=== PATIENT | male | born 1960 | race African-American/Black ===

== ENCOUNTER 2017-04-27 16:28 | Inpatient (IN) | payer OTHER ==
[~2017-04-27] VITALS: Ht 190.5 cm; Wt 89.8 kg
[2017-04-27 16:38] VITALS: BP 136/100
[2017-04-27] MEDS ORDERED: ATOR40TA PO (16:54)
[2017-04-27] MEDS ORDERED: HYDR-1098 PO (16:54)
[2017-04-27] MEDS ORDERED: CEL250 PO (16:54)
[2017-04-27] MEDS ORDERED: CARV12.5 PO (16:54)
[2017-04-27] MEDS ORDERED: PRED10TA5 PO (16:54)
[2017-04-27] MEDS ORDERED: ASPI81CT89 PO (16:54)
[2017-04-27] MEDS ORDERED: ISOS10TA9 PO (16:54)
[2017-04-27] MEDS ORDERED: LEVE750T3 PO (17:08)
[2017-04-27] MEDS ORDERED: INSU100S45 SUBQ (17:08)
[2017-04-27] MEDS ORDERED: LANTUS SUBQ (17:08)
[2017-04-27] MEDS ORDERED: LACO100T PO (17:08)
[2017-04-27] MEDS ORDERED: MAGN400S60 PO (17:08)
[2017-04-27] MEDS ORDERED: BISA-213 RC (17:08)
[2017-04-27] MEDS ORDERED: [UNRECOGNIZED DRUG - CODE] SUBQ (17:08)
[2017-04-27] MEDS ORDERED: OMEP20TC10 PO (17:08)
[2017-04-27] MEDS ORDERED: ATI.5 PO (17:08)
[2017-04-27] MEDS ORDERED: MAGN500T24 PO (17:08)
[2017-04-27] MEDS ORDERED: ACET-2619 PO (17:08)
[2017-04-27] MEDS ORDERED: LOSA100T25 PO (17:08)
[2017-04-27] MEDS ORDERED: PROG1 PO (17:08)
[2017-04-27 18:59] LABS: APPEARANCE,URINE SL CLOUDY (CLEAR); BILIRUBIN,URINE NEGATIVE (NEGATIVE); BLOOD, URINE 2+ (NEGATIVE); COLOR,URINE YELLOW (YELLOW); LEUKOCYTE ESTERASE ,URINE 3+ (NEGATIVE); NITRITE, URINE POSITIVE (NEGATIVE); PROTEIN,URINE 2+ (NEGATIVE); UGLUCOSE NEGATIVE (NEGATIVE); UROBILINOGEN,URINE 0.2 EU/dL (0.2 - 1)
[2017-04-27 19:28] LABS: BACTERIA,URINE 4+ /HPF (None Seen); RBC,URINE 3-10 (FEW) /HPF (0-5); SQUAMOUS EPITHELIAL CELL,UR None Seen /LPF (0-3 (FEW)); WBC,URINE TOO MANY TO COUNT /HPF (0-5)
[2017-04-27 19:44] LABS: BASOPHILS # (AUTO) 0.1 K/uL (0.00-0.22); EOSINOPHILS # (AUTO) 0.1 K/uL (0-0.4); EOSINOPHILS % (AUTO) 1.4 % (0.0-4.0); HEMATOCRIT 38.4 % (36-52); HEMOGLOBIN 12.4 g/dL (12.0-18.0); LYMPHOCYTES # (AUTO) 0.4 K/uL (2.0-11.5); LYMPHOCYTES % (AUTO) 4.1 % (20.5-51.1); MEAN CORPUSCULAR HEMOGLOBIN 27 pg (27-31); MEAN CORPUSCULAR HGB CONC 32 g/dL (33-37); MEAN CORPUSCULAR VOLUME 84 fL (80-94); MONOCYTES # (AUTO) 0.7 K/uL (0.8-1.0); MONOCYTES % (AUTO) 7.6 % (1.7-9.3); NEUTROPHILS # (AUTO) 7.9 K/uL (1.8-7.7); NEUTROPHILS % (AUTO) 85.9 % (42.2-75.2); PLATELET COUNT (AUTO) 259 K/uL (140-450); RED BLOOD CELL COUNT(AUTO) 4.59 MIL/uL (4.20-6.10); RED CELL DISTRIBUTION WIDTH 17.6 % (11.6-13.7); WHITE BLOOD COUNT (AUTO) 9.2 K/uL (4.8-10.8)
[2017-04-27 20:01] LABS: ANION GAP 12.3 (8-16); CALCIUM 8.4 mg/dL (8.5-10.1); CARBON DIOXIDE 28.9 mmol/L (21-32); CREATININE 1.3 mg/dL (0.7-1.3); POTASSIUM 3.2 mmol/L (3.5-5.1)
[2017-04-27 20:02] LABS: INR 1.3 (0.8-1.2); PARTIAL THROMBOPLASTIN TIME 30.6 secs (22-35.6); PROTHROMBIN TIME 13.7 secs (10.8-13.4)
[2017-04-27 20:07] LABS: ALBUMIN 2.5 g/dL (3.4-5.0); TOTAL BILIRUBIN 0.7 mg/dL (0.0-1.0)
[2017-04-27] MEDS ORDERED: POTASSIUM CHLORIDE 10 MEQ TABER PO ONE (20:40)
[2017-04-27] MEDS ORDERED: LEVOFLOXACIN 500 MG/D5W PREMIX 100 ML IV ONE (20:40)
[2017-04-27] MEDS ORDERED: DOCUSATE SODIUM 100 MG GELCAP PO PRN (21:05)
[2017-04-27] MEDS ORDERED: HYDROcodone/APAP 7.5/325 MG 1 TAB PO PRN (21:05)
[2017-04-27] MEDS ORDERED: ONDANSETRON 4 MG/2 ML VIAL IM/IVP PRN (21:05)
[2017-04-27] MEDS ORDERED: ACETAMINOPHEN 325 MG TAB PO PRN (21:05)
[2017-04-27] MEDS ORDERED: MORPHINE SULFATE 2 MG/ML SYR IVP PRN (21:05)
[2017-04-27] MEDS ORDERED: LEVOFLOXACIN 750 MG/D5W PREMIX 150 ML IV ONE (21:15)
[2017-04-27] MEDS ORDERED: LACTOBACILLUS RHAMNOSUS GG 1 EACH CAP PO SCH (21:15)
[2017-04-27 21:48] LABS: CHOL/HDL RATIO 2.3 (1-4.5); FREE T4 (FREE THYROXINE) 1.32 ng/dL (0.76-1.46); MAGNESIUM 1.2 mg/dL (1.8-2.4); PHOSPHORUS 3.3 mg/dL (2.5-4.9); THYROID STIMULATING HORMONE 1.7 uIU/mL (0.34-3.74)
[2017-04-27 22:00] VITALS: BP 145/100
[2017-04-27] MEDS: NACL 0.9% 1,000 ML IV SCH (22:14)
[2017-04-27 22:36] LABS: LACTIC ACID 1.1 mmol/L (0.4-2.0)
[2017-04-27] MEDS ORDERED: DEXTROSE 50% 50 ML SYR IVP PRN (23:50)
[2017-04-28] VITALS: BP 146/90
[2017-04-28] MEDS ORDERED: NON-FORMULARY ITEM (Insulin Aspart* (Novolog*) 3 UNITS) SUBQ PRN (01:35)
[2017-04-28] MEDS ORDERED: BISACODYL 10 MG SUPP RC PRN (01:35)
[2017-04-28] MEDS ORDERED: LORazepam 0.5 MG TAB PO PRN (01:35)
[2017-04-28] MEDS ORDERED: MAGNESIUM HYDROXIDE 2400 MG/30 ML UDC PO PRN (01:35)
[2017-04-28] MEDS ORDERED: ACETAMINOPHEN 325 MG TAB PO PRN (01:35)
[2017-04-28] MEDS ORDERED: MAG SULF 2000 MG/WATER PREMIX 50 ML IV ONE (01:40)
[2017-04-28] MEDS ORDERED: POTASSIUM CHLORIDE 40 MEQ, LIDOCAINE 1% 25 MG in NACL 0.9% 250 ML IV ONE (01:40)
[2017-04-28] MEDS ORDERED: KCL 20 MEQ/WATER INJ PREMIX 200 ML IV ONE (02:45)
[2017-04-28 04:00] VITALS: BP 198/90
[2017-04-28] MEDS: INSULIN DETEMIR 100 UNITS/ML 10 ML VIAL SUBQ SCH (06:43)
[2017-04-28] MEDS: BLOOD GLUCOSE MONITORING 1 DEV DEV FS SCH ×4 (06:44→20:51)
[2017-04-28 08:00] VITALS: BP 137/97
[2017-04-28] MEDS ORDERED: ENOXAPARIN 120 MG/0.8 ML SYR SUBQ SCH ×2 (09:00→21:00)
[2017-04-28] MEDS ORDERED: MAGNESIUM OXIDE 400 MG TAB PO SCH (09:00)
[2017-04-28] MEDS ORDERED: NON-FORMULARY ITEM (Lacosamide (Vimpat) 100 MG) PO SCH (09:00)
[2017-04-28] MEDS: MYCOPHENOLATE 250 MG CAP PO SCH ×2 (10:07→20:59)
[2017-04-28] MEDS: ATORVASTATIN 20 MG TAB PO SCH (10:07)
[2017-04-28] MEDS: ISOSORBIDE DINITRATE 10 MG TAB PO SCH ×3 (10:07→16:19)
[2017-04-28] MEDS: PANTOPRAZOLE 40 MG TABEC PO SCH (10:07)
[2017-04-28] MEDS: levETIRAcetam 500 MG TAB PO SCH ×2 (10:08→21:00)
[2017-04-28] MEDS: ASPIRIN 81 MG TAB.CHEW PO SCH (10:08)
[2017-04-28] MEDS: CARVEDILOL 12.5 MG TAB PO SCH ×2 (10:08→20:59)
[2017-04-28] MEDS: LOSARTAN 50 MG TAB PO SCH (10:09)
[2017-04-28] MEDS: hydrALAZINE 25 MG TAB PO SCH ×4 (10:09→21:01)
[2017-04-28] MEDS: TACROLIMUS 1 MG CAP PO SCH ×2 (10:09→20:59)
[2017-04-28] MEDS: LACTOBACILLUS RHAMNOSUS GG 1 EACH CAP PO SCH (10:09)
[2017-04-28] MEDS: predniSONE 10 MG TAB PO SCH (10:09)
[2017-04-28 12:00] VITALS: BP 118/70
[2017-04-28] MEDS: INSULIN LISPRO SLIDING SCALE 100 UNITS/ML VIAL SUBQ PRN ×3 (13:29→21:02)
[2017-04-28] MEDS: ALBUTEROL SULFATE/IPRATROPIU 3 ML SOL IH SCH ×3 (15:00→22:57)
[2017-04-28 16:00] VITALS: BP 123/75
[2017-04-28] MEDS ORDERED: POTASSIUM CHLORIDE 10 MEQ TABER PO SCH (16:00)
[2017-04-28] MEDS ORDERED: HEPARIN PER PHARMACY MC PRN (18:05)
[2017-04-28] MEDS ORDERED: hePARIN / DEXT 5% PREMIX 250 ML IV SCH (18:05)
[2017-04-28 20:00] VITALS: BP 122/95
[2017-04-28] MEDS: MAGNESIUM OXIDE 400 MG TAB PO SCH (21:00)
[2017-04-28] MEDS: NACL 0.9% 1,000 ML IV SCH (21:06)
[2017-04-28] MEDS: LEVOFLOXACIN 750 MG/D5W PREMIX 150 ML IV SCH (23:36)
[2017-04-29] VITALS: BP 126/64
[2017-04-29] MEDS: ALBUTEROL SULFATE/IPRATROPIU 3 ML SOL IH SCH ×3 (03:00→11:00)
[2017-04-29 04:00] VITALS: BP 121/93
[2017-04-29] MEDS: BLOOD GLUCOSE MONITORING 1 DEV DEV FS SCH ×4 (06:31→21:31)
[2017-04-29] MEDS: INSULIN DETEMIR 100 UNITS/ML 10 ML VIAL SUBQ SCH (06:33)
[2017-04-29] MEDS: INSULIN LISPRO SLIDING SCALE 100 UNITS/ML VIAL SUBQ PRN ×3 (06:35→21:33)
[2017-04-29 07:50] VITALS: BP 134/90
[2017-04-29] MEDS: ATORVASTATIN 20 MG TAB PO SCH (08:56)
[2017-04-29] MEDS: MYCOPHENOLATE 250 MG CAP PO SCH ×2 (08:56→21:41)
[2017-04-29] MEDS: TACROLIMUS 1 MG CAP PO SCH ×2 (08:57→21:00)
[2017-04-29] MEDS: predniSONE 10 MG TAB PO SCH (08:57)
[2017-04-29] MEDS: CARVEDILOL 12.5 MG TAB PO SCH ×2 (08:57→21:40)
[2017-04-29] MEDS: ISOSORBIDE DINITRATE 10 MG TAB PO SCH ×3 (08:57→16:59)
[2017-04-29] MEDS: PANTOPRAZOLE 40 MG TABEC PO SCH (08:57)
[2017-04-29] MEDS: levETIRAcetam 500 MG TAB PO SCH ×2 (08:58→21:41)
[2017-04-29] MEDS: MAGNESIUM OXIDE 400 MG TAB PO SCH ×2 (08:58→21:42)
[2017-04-29] MEDS: LOSARTAN 50 MG TAB PO SCH (08:58)
[2017-04-29] MEDS: hydrALAZINE 25 MG TAB PO SCH ×4 (08:58→21:41)
[2017-04-29] MEDS: ASPIRIN 81 MG TAB.CHEW PO SCH (08:59)
[2017-04-29 12:00] VITALS: BP 112/80
[2017-04-29 12:22] LABS: BASOPHILS # (AUTO) 0.1 K/uL (0.00-0.22); BASOPHILS % (AUTO) 1.3 % (0.0-2.0); EOSINOPHILS # (AUTO) 0.1 K/uL (0-0.4); EOSINOPHILS % (AUTO) 1.4 % (0.0-4.0); HEMATOCRIT 39.4 % (36-52); HEMOGLOBIN 12.7 g/dL (12.0-18.0); LYMPHOCYTES # (AUTO) 0.3 K/uL (2.0-11.5); LYMPHOCYTES % (AUTO) 2.9 % (20.5-51.1); MEAN CORPUSCULAR HEMOGLOBIN 27 pg (27-31); MEAN CORPUSCULAR HGB CONC 32 g/dL (33-37); MEAN CORPUSCULAR VOLUME 84 fL (80-94); MONOCYTES # (AUTO) 0.6 K/uL (0.8-1.0); MONOCYTES % (AUTO) 5.9 % (1.7-9.3); NEUTROPHILS # (AUTO) 8.5 K/uL (1.8-7.7); NEUTROPHILS % (AUTO) 88.5 % (42.2-75.2); PLATELET COUNT (AUTO) 263 K/uL (140-450); RED BLOOD CELL COUNT(AUTO) 4.69 MIL/uL (4.20-6.10); RED CELL DISTRIBUTION WIDTH 17.7 % (11.6-13.7)
[2017-04-29 12:42] LABS: ANION GAP 11.4 (8-16); CALCIUM 8.7 mg/dL (8.5-10.1); CARBON DIOXIDE 28.6 mmol/L (21-32); CREATININE 1.5 mg/dL (0.7-1.3)
[2017-04-29 12:47] LABS: WHITE BLOOD COUNT (AUTO) 9.6 K/uL (4.8-10.8)
[2017-04-29] MEDS: LACTOBACILLUS RHAMNOSUS GG 1 EACH CAP PO SCH (12:54)
[2017-04-29] MEDS: LACOSAMIDE 100 MG PO SCH ×2 (12:55→21:00)
[2017-04-29] MEDS: NACL 0.9% 1,000 ML IV SCH (15:15)
[2017-04-29] MEDS ORDERED: ALBUTEROL SULFATE/IPRATROPIU 3 ML SOL IH PRN (15:20)
[2017-04-29 16:00] VITALS: BP 118/72
[2017-04-29] MEDS ORDERED: HEPARIN PER PHARMACY MC PRN (18:10)
[2017-04-29 21:06] LABS: INR 1.2 (0.8-1.2); PROTHROMBIN TIME 12.6 secs (10.8-13.4)
[2017-04-29] MEDS ORDERED: hePARIN / DEXT 5% PREMIX 250 ML IV SCH (22:00)
[2017-04-29] MEDS ORDERED: WARFARIN 5 MG TAB PO SCH (22:15)
[2017-04-29] MEDS: LEVOFLOXACIN 750 MG/D5W PREMIX 150 ML IV SCH (23:00)
[2017-04-29] MEDS ORDERED: LEVOFLOXACIN 750 MG TAB PO SCH (23:45)
[2017-04-30] VITALS: BP 123/74
[2017-04-30] MEDS: LACOSAMIDE 100 MG PO SCH ×3 (00:12→20:53)
[2017-04-30 05:55] LABS: BASOPHILS % (AUTO) 0.5 % (0.0-2.0); EOSINOPHILS # (AUTO) 0.2 K/uL (0-0.4); EOSINOPHILS % (AUTO) 1.7 % (0.0-4.0); HEMATOCRIT 37.6 % (36-52); HEMOGLOBIN 12.3 g/dL (12.0-18.0); LYMPHOCYTES # (AUTO) 0.8 K/uL (2.0-11.5); LYMPHOCYTES % (AUTO) 8.3 % (20.5-51.1); MEAN CORPUSCULAR HEMOGLOBIN 27 pg (27-31); MEAN CORPUSCULAR HGB CONC 33 g/dL (33-37); MEAN CORPUSCULAR VOLUME 84 fL (80-94); MONOCYTES # (AUTO) 1.3 K/uL (0.8-1.0); NEUTROPHILS # (AUTO) 7.2 K/uL (1.8-7.7); NEUTROPHILS % (AUTO) 75.5 % (42.2-75.2); PLATELET COUNT (AUTO) 248 K/uL (140-450); RED BLOOD CELL COUNT(AUTO) 4.48 MIL/uL (4.20-6.10); RED CELL DISTRIBUTION WIDTH 17.7 % (11.6-13.7)
[2017-04-30 06:34] LABS: CALCIUM 9.2 mg/dL (8.5-10.1); CARBON DIOXIDE 28.2 mmol/L (21-32); CREATININE 1.4 mg/dL (0.7-1.3); MAGNESIUM 1.5 mg/dL (1.8-2.4); PHOSPHORUS 3.3 mg/dL (2.5-4.9); POTASSIUM 3.2 mmol/L (3.5-5.1)
[2017-04-30 06:39] LABS: INR 1.2 (0.8-1.2); PROTHROMBIN TIME 12.4 secs (10.8-13.4)
[2017-04-30] MEDS: INSULIN DETEMIR 100 UNITS/ML 10 ML VIAL SUBQ SCH (06:44)
[2017-04-30] MEDS: BLOOD GLUCOSE MONITORING 1 DEV DEV FS SCH ×4 (06:46→20:55)
[2017-04-30 07:03] LABS: WHITE BLOOD COUNT (AUTO) 9.5 K/uL (4.8-10.8)
[2017-04-30] MEDS: NACL 0.9% 1,000 ML IV SCH (07:55)
[2017-04-30 08:00] VITALS: BP 137/105
[2017-04-30] MEDS: CARVEDILOL 12.5 MG TAB PO SCH ×2 (08:40→20:52)
[2017-04-30] MEDS: ISOSORBIDE DINITRATE 10 MG TAB PO SCH ×3 (08:40→16:41)
[2017-04-30] MEDS: LOSARTAN 50 MG TAB PO SCH (08:40)
[2017-04-30] MEDS: hydrALAZINE 25 MG TAB PO SCH ×4 (08:41→20:51)
[2017-04-30] MEDS: levETIRAcetam 500 MG TAB PO SCH ×2 (08:41→20:52)
[2017-04-30] MEDS: LACTOBACILLUS RHAMNOSUS GG 1 EACH CAP PO SCH (08:45)
[2017-04-30] MEDS: predniSONE 10 MG TAB PO SCH (08:45)
[2017-04-30] MEDS: ATORVASTATIN 20 MG TAB PO SCH (08:45)
[2017-04-30] MEDS: PANTOPRAZOLE 40 MG TABEC PO SCH (08:46)
[2017-04-30] MEDS: MYCOPHENOLATE 250 MG CAP PO SCH ×2 (08:46→20:51)
[2017-04-30] MEDS: ASPIRIN 81 MG TAB.CHEW PO SCH (08:46)
[2017-04-30] MEDS: TACROLIMUS 1 MG CAP PO SCH ×2 (08:46→20:53)
[2017-04-30] MEDS: MAGNESIUM OXIDE 400 MG TAB PO SCH ×2 (08:50→20:53)
[2017-04-30] MEDS ORDERED: WARFARIN 5 MG TAB PO SCH (09:00)
[2017-04-30 10:00] VITALS: BP 126/84
[2017-04-30] MEDS ORDERED: POTASSIUM CHLORIDE 10 MEQ TABER PO ONE (11:00)
[2017-04-30] MEDS ORDERED: QUEtiapine FUMARATE 25 MG TAB PO SCH (11:00)
[2017-04-30] MEDS ORDERED: MAG SULF 2000 MG/WATER PREMIX 50 ML IV ONE (11:15)
[2017-04-30] MEDS: INSULIN LISPRO SLIDING SCALE 100 UNITS/ML VIAL SUBQ PRN (11:38)
[2017-04-30 12:00] VITALS: BP 127/85
[2017-04-30] MEDS ORDERED: POTASSIUM CHLORIDE 10 MEQ TABER PO SCH ×3 (12:00→16:00)
[2017-04-30 12:10] LABS: HEPATITIS A ANTIBODY IGM Negative (Negative); HEPATITIS B CORE AB TOTAL Negative (Negative); HEPATITIS B CORE, IGM Negative (Negative); HEPATITIS B SURFACE AB Reactive (.); HEPATITIS B SURFACE ANTIGEN Negative (Negative); HEPATITIS C VIRUS ANTIBODY 0.1 s/co ratio (0.0-0.9)
[2017-04-30 16:00] VITALS: BP 119/62
[2017-04-30] MEDS ORDERED: MAGNESIUM OXIDE 400 MG TAB PO SCH ×2 (18:30→21:00)
[2017-04-30] MEDS ORDERED: LEVOFLOXACIN 750 MG TAB PO SCH (21:00)
[2017-05-01] MEDS: NACL 0.9% 1,000 ML IV SCH ×2 (00:35→17:15)
[2017-05-01 06:09] LABS: BASOPHILS # (AUTO) 0.1 K/uL (0.00-0.22); BASOPHILS % (AUTO) 1.1 % (0.0-2.0); EOSINOPHILS # (AUTO) 0.2 K/uL (0-0.4); EOSINOPHILS % (AUTO) 2.3 % (0.0-4.0); HEMATOCRIT 37.1 % (36-52); HEMOGLOBIN 11.8 g/dL (12.0-18.0); LYMPHOCYTES # (AUTO) 0.7 K/uL (2.0-11.5); LYMPHOCYTES % (AUTO) 9.3 % (20.5-51.1); MEAN CORPUSCULAR HEMOGLOBIN 27 pg (27-31); MEAN CORPUSCULAR HGB CONC 32 g/dL (33-37); MEAN CORPUSCULAR VOLUME 84 fL (80-94); MONOCYTES # (AUTO) 0.8 K/uL (0.8-1.0); MONOCYTES % (AUTO) 10.9 % (1.7-9.3); NEUTROPHILS # (AUTO) 5.4 K/uL (1.8-7.7); NEUTROPHILS % (AUTO) 76.4 % (42.2-75.2); PLATELET COUNT (AUTO) 258 K/uL (140-450); RED BLOOD CELL COUNT(AUTO) 4.43 MIL/uL (4.20-6.10); RED CELL DISTRIBUTION WIDTH 17.6 % (11.6-13.7)
[2017-05-01 06:20] LABS: ANION GAP 11.4 (8-16); CALCIUM 8.8 mg/dL (8.5-10.1); CARBON DIOXIDE 26.2 mmol/L (21-32); CREATININE 1.3 mg/dL (0.7-1.3); POTASSIUM 3.6 mmol/L (3.5-5.1)
[2017-05-01] MEDS: INSULIN DETEMIR 100 UNITS/ML 10 ML VIAL SUBQ SCH (06:30)
[2017-05-01 06:33] LABS: MAGNESIUM 1.5 mg/dL (1.8-2.4); PHOSPHORUS 3.5 mg/dL (2.5-4.9)
[2017-05-01] MEDS: BLOOD GLUCOSE MONITORING 1 DEV DEV FS SCH ×4 (06:34→20:25)
[2017-05-01 07:04] LABS: WHITE BLOOD COUNT (AUTO) 7.2 K/uL (4.8-10.8)
[2017-05-01 08:00] VITALS: BP 118/81
[2017-05-01] MEDS: levETIRAcetam 500 MG TAB PO SCH ×2 (08:33→20:12)
[2017-05-01] MEDS: MAGNESIUM OXIDE 400 MG TAB PO SCH (08:33)
[2017-05-01] MEDS: MYCOPHENOLATE 250 MG CAP PO SCH ×2 (08:34→20:10)
[2017-05-01] MEDS: ATORVASTATIN 20 MG TAB PO SCH (08:34)
[2017-05-01] MEDS: PANTOPRAZOLE 40 MG TABEC PO SCH (08:34)
[2017-05-01] MEDS: CARVEDILOL 12.5 MG TAB PO SCH ×2 (08:35→20:12)
[2017-05-01] MEDS: predniSONE 10 MG TAB PO SCH (08:35)
[2017-05-01] MEDS: TACROLIMUS 1 MG CAP PO SCH ×2 (08:35→20:12)
[2017-05-01] MEDS: LACTOBACILLUS RHAMNOSUS GG 1 EACH CAP PO SCH (08:35)
[2017-05-01] MEDS: ISOSORBIDE DINITRATE 10 MG TAB PO SCH ×3 (08:36→16:49)
[2017-05-01] MEDS: LOSARTAN 50 MG TAB PO SCH (08:36)
[2017-05-01] MEDS: ASPIRIN 81 MG TAB.CHEW PO SCH (08:36)
[2017-05-01] MEDS: LACOSAMIDE 100 MG PO SCH ×2 (08:37→21:00)
[2017-05-01] MEDS: hydrALAZINE 25 MG TAB PO SCH ×4 (08:38→20:10)
[2017-05-01] MEDS ORDERED: QUEtiapine FUMARATE 25 MG TAB PO SCH (09:00)
[2017-05-01] MEDS: INSULIN LISPRO SLIDING SCALE 100 UNITS/ML VIAL SUBQ PRN ×3 (11:51→20:21)
[2017-05-01 12:00] VITALS: BP 138/94
[2017-05-01] MEDS ORDERED: WARF10TA PO ×3 (12:18→12:26)
[2017-05-01] MEDS ORDERED: [UNRECOGNIZED DRUG - CODE] SUBQ (12:18)
[2017-05-01] MEDS ORDERED: QUET50TA PO (12:50)
[2017-05-01 13:25] LABS: HIV 1/0/2 ABS, QUAL Non Reactive (Non Reactive)
[2017-05-01] MEDS ORDERED: CIPROFLOXACIN 250 MG TAB PO SCH (15:00)
[2017-05-01 16:00] VITALS: BP 131/74
[2017-05-01] MEDS ORDERED: WARFARIN 5 MG TAB PO SCH ×2 (17:00)
[2017-05-01 20:00] VITALS: BP 142/92
[2017-05-01] MEDS: CIPROFLOXACIN 250 MG TAB PO SCH (20:11)
[2017-05-02] VITALS: BP 141/97
[2017-05-02] MEDS: INSULIN DETEMIR 100 UNITS/ML 10 ML VIAL SUBQ SCH (06:30)
[2017-05-02] MEDS: BLOOD GLUCOSE MONITORING 1 DEV DEV FS SCH ×3 (06:30→16:30)
[2017-05-02 07:02] LABS: ANION GAP 12.9 (8-16); CARBON DIOXIDE 25.9 mmol/L (21-32); CREATININE 1.4 mg/dL (0.7-1.3); POTASSIUM 3.8 mmol/L (3.5-5.1)
[2017-05-02 07:07] LABS: INR 1.5 (0.8-1.2); PROTHROMBIN TIME 14.7 secs (10.8-13.4)
[2017-05-02 08:00] VITALS: BP 146/99
[2017-05-02] MEDS: ASPIRIN 81 MG TAB.CHEW PO SCH (08:29)
[2017-05-02] MEDS: CIPROFLOXACIN 250 MG TAB PO SCH (08:30)
[2017-05-02] MEDS: CARVEDILOL 12.5 MG TAB PO SCH (08:30)
[2017-05-02] MEDS: hydrALAZINE 25 MG TAB PO SCH ×3 (08:30→17:00)
[2017-05-02] MEDS: ISOSORBIDE DINITRATE 10 MG TAB PO SCH ×3 (08:31→17:00)
[2017-05-02] MEDS: LACTOBACILLUS RHAMNOSUS GG 1 EACH CAP PO SCH (08:31)
[2017-05-02] MEDS: ATORVASTATIN 20 MG TAB PO SCH (08:31)
[2017-05-02] MEDS: TACROLIMUS 1 MG CAP PO SCH (09:00)
[2017-05-02] MEDS ORDERED: QUEtiapine FUMARATE 100 MG TAB PO SCH (09:00)
[2017-05-02] MEDS: MYCOPHENOLATE 250 MG CAP PO SCH (09:00)
[2017-05-02] MEDS: LOSARTAN 50 MG TAB PO SCH (09:00)
[2017-05-02] MEDS ORDERED: QUEtiapine FUMARATE 25 MG TAB PO SCH ×2 (09:00)
[2017-05-02] MEDS: levETIRAcetam 500 MG TAB PO SCH (09:00)
[2017-05-02] MEDS: MAGNESIUM OXIDE 400 MG TAB PO SCH ×3 (09:00→16:57)
[2017-05-02] MEDS: PANTOPRAZOLE 40 MG TABEC PO SCH ×2 (09:00→11:32)
[2017-05-02] MEDS: LACOSAMIDE 100 MG PO SCH ×2 (09:00→11:33)
[2017-05-02] MEDS: predniSONE 10 MG TAB PO SCH ×2 (09:00→11:32)
[2017-05-02] MEDS ORDERED: MAG SULF 2000 MG/WATER PREMIX 50 ML IV SCH (10:00)
[2017-05-02 10:13] LABS: HEPATITIS A ANTIBODY TOTAL Positive (Negative)
[2017-05-02] MEDS: NACL 0.9% 1,000 ML IV SCH (10:20)
[2017-05-02] MEDS: INSULIN LISPRO SLIDING SCALE 100 UNITS/ML VIAL SUBQ PRN (12:12)
[2017-05-02] MEDS ORDERED: [UNRECOGNIZED DRUG - CODE] SUBQ (15:54)
[2017-05-02] MEDS ORDERED: WARF10TA PO (15:55)
[2017-05-02] MEDS ORDERED: QUET50TA PO (15:58)
[2017-05-02] MEDS ORDERED: WARFARIN 5 MG TAB PO SCH (17:00)
[2017-05-03 06:40] LABS: TACROLIMUS 10.7 ng/mL (2.0-20.0)
[2017-05-05 15:08] LABS: HEMOGLOBIN A1C 6.7 % (4.8-5.6)
== END 2017-05-02 17:00 | DRG 70 ==
LOC: MED 16:28 → MTU 21:10
PROVIDERS: ADMIT Family Medicine; ATTEND Family Medicine
DX: G93.41 Metabolic encephalopathy (principal); N17.0 Acute kidney failure with tubular necrosis; I50.43 Acute on chronic combined systolic (congestive) and diastolic (congestive) heart failure; E43 Unspecified severe protein-calorie malnutrition; N39.0 Urinary tract infection, site not specified; D68.59 Other primary thrombophilia; Z94.0 Kidney transplant status; I13.2 Hypertensive heart and chronic kidney disease with heart failure and with stage 5 chronic kidney disease, or end stage renal disease; J96.10 Chronic respiratory failure, unspecified whether with hypoxia or hypercapnia; I82.621 Acute embolism and thrombosis of deep veins of right upper extremity; I42.0 Dilated cardiomyopathy; E11.65 Type 2 diabetes mellitus with hyperglycemia; G40.909 Epilepsy, unspecified, not intractable, without status epilepticus; E87.6 Hypokalemia; E83.42 Hypomagnesemia; B96.89 Other specified bacterial agents as the cause of diseases classified elsewhere; I48.2 Chronic atrial fibrillation; E83.51 Hypocalcemia; N18.3 Chronic kidney disease, stage 3 (moderate); G89.29 Other chronic pain; E11.22 Type 2 diabetes mellitus with diabetic chronic kidney disease; E78.5 Hyperlipidemia, unspecified; Z86.718 Personal history of other venous thrombosis and embolism; Z91.14 Patient's other noncompliance with medication regimen; Z91.19 Patient's noncompliance with other medical treatment and regimen; Z88.8 Allergy status to other drugs, medicaments and biological substances; Z79.82 Long term (current) use of aspirin; Z79.4 Long term (current) use of insulin; Z86.73 Personal history of transient ischemic attack (TIA), and cerebral infarction without residual deficits; Z79.899 Other long term (current) drug therapy; Z68.24 Body mass index [BMI] 24.0-24.9, adult
CPT/HCPCS: 36415; 70450; 71010; 80048; 80053; 81001; 82140; 82150; 82550; 82553; 82948; 83036; 83605; 83690; 83735; 83874; 83880; 84100; 84436; 84439; 84443; 84479; 84484; 85025; 85610; 85730; 86592; 86702; 86704; 86706; 86708; 86709; 86803; 87040; 87077; 87081; 87086; 87186; 87340; 92526; 93005; 93308; 94640; 96365; 97116; 97530; 99285; J1644; J1815; J1956; J2001; J3475; J3480; J7030; J7060; J7507; J7512; J7517; J7620; Q0092